=== PATIENT | female | born 1945 | race Caucasian/White ===

== ENCOUNTER → 2017-01-15 | Outpatient (CLI) | payer MEDICARE, OTHER ==
[~2017-01-15] MED LIST: ATENOLOL50 MG PO; EVISTA60 MG PO; LEVOTHYROXIN0.075 MG PO
== END ==
LOC: COL.RAD 10:53
DX: Z53.9 Procedure and treatment not carried out, unspecified reason (principal)

== ENCOUNTER → 2017-01-27 | Outpatient (CLI) | payer MEDICARE, OTHER | LOC: COL.RAD 10:53 | DX: I65.23 Occlusion and stenosis of bilateral carotid arteries (principal); H93.11 Tinnitus, right ear; I10 Essential (primary) hypertension | CPT/HCPCS: Q9967 ==

== ENCOUNTER → 2017-04-10 | Outpatient (CLI) | payer MEDICARE, OTHER | LOC: COL.RAD 14:35 | DX: R55 Syncope and collapse (principal) | CPT/HCPCS: A9585 ==

== ENCOUNTER → 2017-04-11 | Outpatient (CLI) | payer MEDICARE | LOC: MC.RAD 10:18 | DX: Z12.31 Encounter for screening mammogram for malignant neoplasm of breast (principal); Z85.3 Personal history of malignant neoplasm of breast ==

== ENCOUNTER → 2018-04-27 | Outpatient (CLI) | payer MEDICARE | LOC: MC.RAD 13:51 | DX: Z12.31 Encounter for screening mammogram for malignant neoplasm of breast (principal); Z85.3 Personal history of malignant neoplasm of breast ==

== ENCOUNTER 2019-01-20 23:22 | Emergency (ER) | payer MEDICARE, OTHER ==
[~2019-01-20] VITALS: Ht 162.6 cm; Wt 63.6 kg
[2019-01-20 23:29] VITALS: TEMP 98.4
[2019-01-20] MEDS ORDERED: PRINIVIL40 MG PO (23:41)
[2019-01-20] MEDS ORDERED: SYNTHROID0.075 MG/T PO (23:41)
[2019-01-20] MEDS ORDERED: HCTZ12.5TAB PO (23:41)
[2019-01-20] MEDS ORDERED: DOXYCYCLINE 10100 MG PO (23:42)
[2019-01-20] MEDS ORDERED: ASPIRIN 81M81 MG/TA2 PO (23:42)
[2019-01-20 23:52] LABS: BASO % 0.3 % (0.0-2.0); EOS # 0.3 (0.0-0.7); EOS % 2.1 % (0-4.0); GRAN # 10.4 (1.4-6.5); GRAN % 67.4 % (42.2-75.2); HEMATOCRIT 36.4 % (37.0-47.0); HEMOGLOBIN 11.9 g/dl (12.5-16.0); LYMPH # 3.6 (1.2-3.4); LYMPH % 23.5 % (20.0-51.0); MEAN CELL VOLUME 88 fl (80.0-100.0); MEAN CORPUSCULAR HEMOGLOBIN 29 pg (27.0-31.0); MEAN CORPUSCULAR HGB CONC 33 g/dl (33.0-37.0); MEAN PLATELET VOLUME 10.7 fl (7.4-10.4); MONO % 6.3 % (1.7-9.3); PLATELET COUNT 224 K/mm3 (130-400); RED BLOOD COUNT 4.13 M/mm3 (4.10-5.30); REDCELL DISTRIBUTION WIDTH-CV 13.3 % (11.5-14.5)
[2019-01-20 23:53] LABS: ALANINE AMINOTRANSFERASE 17 U/L (9-52); ALKALINE PHOSPHATASE 76 U/L (50-136); ANION GAP 9 mmol/L (7-16); AST,SGOT 29 U/L (15-37); BILIRUBIN,TOTAL 0.2 mg/dL (0.0-1.0); BLOOD UREA NITROGEN 24 mg/dL (7-17); CALCIUM 9.1 mg/dL (8.4-10.2); CARBON DIOXIDE 27 mmol/L (22-30); CHLORIDE 100 mmol/L (98-107); CREATININE, serum 1.22 (0.52-1.25); GLUCOSE 132 mg/dL (74-106); POTASSIUM 3.6 mmol/L (3.4-5.0); SODIUM 136 mmol/L (137-145); TOTAL PROTEIN 7.1 gm/dL (6.4-8.2)
[2019-01-21 00:04] LABS: TROPONIN-I < 0.012 ng/mL (0.000-0.035)
[2019-01-21] MEDS ORDERED: FLEXERIL5 MG PO (01:22)
[2019-01-21] MEDS ORDERED: LIDODERM 5% PATC1 EA TP (01:22)
[2019-01-21] MEDS ORDERED: LEVAQUIN 750MG750 M1 PO (01:22)
[2019-01-21 01:56] VITALS: BP 136/62; PULSE 95
== END 2019-01-21 02:11 | disposition home or self-care (01) ==
LOC: COL.ER 23:22
PROVIDERS: Emergency Medicine
DX: J18.9 Pneumonia, unspecified organism (principal); M62.838 Other muscle spasm; M54.2 Cervicalgia; I10 Essential (primary) hypertension; E03.9 Hypothyroidism, unspecified; Z85.3 Personal history of malignant neoplasm of breast; Z79.82 Long term (current) use of aspirin; Z88.2 Allergy status to sulfonamides
CPT/HCPCS: J1885; J7030

== ENCOUNTER → 2019-11-01 | Outpatient (CLI) | payer MEDICARE, OTHER ==
[~2019-11-01] MED LIST changes: +ASPIRIN 81M81 MG/TA2 PO; +DOXYCYCLINE 10100 MG PO; +FLEXERIL5 MG PO; +HCTZ12.5TAB PO; +LEVAQUIN 750MG750 M1 PO; +LIDODERM 5% PATC1 EA TP; +PRINIVIL40 MG PO; +SYNTHROID0.075 MG/T PO
== END ==
LOC: COL.RAD 10:13
DX: M16.12 Unilateral primary osteoarthritis, left hip (principal)
CPT/HCPCS: J3301; Q9967

== ENCOUNTER → 2020-06-28 | Outpatient (CLI) | payer MEDICARE, OTHER | LOC: COL.RAD | DX: M25.552 Pain in left hip (principal) | CPT/HCPCS: J3301; Q9967 ==

== ENCOUNTER → 2020-07-07 | Outpatient (CLI) | payer MEDICARE, OTHER | LOC: MC.RAD 10:59 | DX: Z12.31 Encounter for screening mammogram for malignant neoplasm of breast (principal); Z98.890 Other specified postprocedural states; Z98.82 Breast implant status; N63.41 Unspecified lump in right breast, subareolar; Z92.3 Personal history of irradiation; Z85.3 Personal history of malignant neoplasm of breast ==

== ENCOUNTER → 2020-07-14 | Outpatient (CLI) | payer MEDICARE, OTHER | LOC: MC.RAD 09:44 | DX: N60.01 Solitary cyst of right breast (principal) ==

== ENCOUNTER 2021-03-29 08:43 | Emergency (ER) | payer MEDICARE, OTHER ==
[~2021-03-29] VITALS: Ht 162.6 cm; Wt 55.9 kg
[2021-03-29 08:49] VITALS: TEMP 97.8
[2021-03-29 10:41] LABS: BASO # 0.1 (0.0-0.2); BASO % 0.5 % (0.0-2.0); EOS % 0.2 % (0-4.0); GRAN # 7.2 (1.4-6.5); GRAN % 77.8 % (42.2-75.2); HEMOGLOBIN 11.7 g/dl (12.5-16.0); LYMPH # 1.6 (1.2-3.4); LYMPH % 17.1 % (20.0-51.0); MEAN CELL VOLUME 89 fl (80.0-100.0); MEAN CORPUSCULAR HEMOGLOBIN 28 pg (27.0-31.0); MEAN CORPUSCULAR HGB CONC 32 g/dl (33.0-37.0); MONO # 0.4 (0.1-0.6); MONO % 4.1 % (1.7-9.3); PLATELET COUNT 248 K/mm3 (130-400); RED BLOOD COUNT 4.15 M/mm3 (4.10-5.30); REDCELL DISTRIBUTION WIDTH-CV 14.1 % (11.5-14.5)
[2021-03-29 10:52] LABS: COLLECTION METHOD CLEAN CATCH
[2021-03-29 10:55] LABS: ALBUMIN 4.1 gm/dL (3.5-5.0); BILIRUBIN,TOTAL 0.2 mg/dL (0.0-1.0); CALCIUM 9.4 mg/dL (8.4-10.2); CREATININE, serum 0.97 (0.52-1.25); POTASSIUM 4.6 mmol/L (3.4-5.0); TOTAL PROTEIN 7.1 gm/dL (6.4-8.2)
[2021-03-29 10:59] LABS: PH 5 (5-8); SQUAMOUS EPITHELIAL 0-2 /hpf; URINE APPEARANCE Clear; URINE BACTERIA None Seen /hpf; URINE BILIRUBIN Negative (NEGATIVE); URINE BLOOD Negative (NEGATIVE); URINE COLOR Straw; URINE GLUCOSE Negative (NEGATIVE); URINE KETONE Negative (NEGATIVE); URINE LEUKOCYTE ESTERASE Negative (NEGATIVE); URINE NITRATE Negative (NEGATIVE); URINE PROTEIN(semi-quant) Negative (NEGATIVE); URINE RBC 0-2 /hpf; URINE UROBILINOGEN Negative (NEGATIVE)
[2021-03-29] MEDS ORDERED: BONINE25 MG PO (11:12)
[2021-03-29 11:20] VITALS: BP 129/80; PULSE 76
== END 2021-03-29 11:24 | disposition home or self-care (01) ==
LOC: COL.ER 08:43
PROVIDERS: Family Medicine
DX: H83.01 Labyrinthitis, right ear (principal); J18.9 Pneumonia, unspecified organism; H55.00 Unspecified nystagmus; I10 Essential (primary) hypertension; Z79.899 Other long term (current) drug therapy

== ENCOUNTER → 2021-11-23 | Outpatient (CLI) | payer MEDICARE, OTHER ==
[~2021-11-23] MED LIST changes: +BONINE25 MG PO
== END ==
LOC: MC.RAD 11:23
DX: Z12.31 Encounter for screening mammogram for malignant neoplasm of breast (principal)

== ENCOUNTER → 2022-11-25 | Outpatient (CLI) | payer MEDICARE, OTHER | LOC: MC.RAD 13:50 | DX: Z12.31 Encounter for screening mammogram for malignant neoplasm of breast (principal) ==

== ENCOUNTER 2023-10-23 09:45 | Outpatient (RCR) | payer OTHER, MEDICARE ==
[~2023-10-23 09:45] MED LIST changes: +MIRALAX510G PO; +NORCO 325 MG-51 TAB PO; +ZOFRAN ODT4 MG PO
== END 2023-10-26 | disposition home or self-care (01) ==
LOC: WSPT
DX: S42.242D 4-part fracture of surgical neck of left humerus, subsequent encounter for fracture with routine healing (principal); X58.XXXD Exposure to other specified factors, subsequent encounter

== ENCOUNTER → 2024-01-01 | Outpatient (CLI) | payer MEDICARE | LOC: MC.RAD 14:09 | DX: Z12.31 Encounter for screening mammogram for malignant neoplasm of breast (principal) ==